=== PATIENT | female | born 1950 ===

== ENCOUNTER 2019-08-04 12:45 | Inpatient (IN) | payer OTHER ==
[~2019-08-04] VITALS: Ht 152.4 cm; Wt 63.5 kg
[2019-08-07] MEDS ORDERED: ALLEGRA ALLERGY60 MG PO (07:59)
[2019-08-07] MEDS ORDERED: SINGULAIR10 MG PO (07:59)
[2019-08-08] MEDS ORDERED: TYLENOL #3 PO (08:38)
== END 2019-08-08 10:51 | disposition home or self-care (01) | DRG 743 ==
LOC: OB/GYN 08-07 06:53 → O/R 08-07 06:53 → SURH 08-07 12:30 → O/R 08-07 12:45 → SURH 08-07 12:45 → OB/GYN 08-07 13:05
PROVIDERS: ADMIT Obstetrics & Gynecology
PROC: 0UT77ZZ Resection of Bilateral Fallopian Tubes, Via Natural or Artificial Opening (ICD-10-PCS; 2019-08-07)
PROC: 0UT27ZZ Resection of Bilateral Ovaries, Via Natural or Artificial Opening (ICD-10-PCS; 2019-08-07)
PROC: 0JQC0ZZ Repair Pelvic Region Subcutaneous Tissue and Fascia, Open Approach (ICD-10-PCS; 2019-08-07)
PROC: 0TJB8ZZ Inspection of Bladder, Via Natural or Artificial Opening Endoscopic (ICD-10-PCS; 2019-08-07)
PROC: 0UT97ZZ Resection of Uterus, Via Natural or Artificial Opening (ICD-10-PCS; principal; 2019-08-07 12:30)
DX: D25.1 Intramural leiomyoma of uterus (principal); D25.2 Subserosal leiomyoma of uterus; N84.0 Polyp of corpus uteri; N83.332 Acquired atrophy of left ovary and fallopian tube; N83.331 Acquired atrophy of right ovary and fallopian tube; N72 Inflammatory disease of cervix uteri; N81.2 Incomplete uterovaginal prolapse